=== PATIENT | female | born 1990 | race Caucasian/White ===

== ENCOUNTER 2019-04-27 17:25 | Emergency (ER) | payer SELFPAY ==
[~2019-04-27] VITALS: Ht 154.9 cm; Wt 64.9 kg
[2019-04-27 17:25] VITALS: BP_SYST 122
--- NOTE | 2019-04-27 17:25 | NUR ---
Patient to ER bed hallway to [facility] for evaluation. Side rails up. Report given to OLGA Valdivia.
--- NOTE | 2019-04-27 17:30 | NUR ---
Patient brought in by law enforcement for medical clearance, Hx Ovarian CA, Skin CA, anxiety, depression. Patient A&Ox4, skin pink and warm, cap refill <3, denies pain, denies N/V/D.
--- NOTE | 2019-04-27 17:30 | NUR ---
PAtient brought in by law enforcement for medical clearance, Hx Ovarian CA, Skin CA, anxiety, depression. Patient A&Ox4, skin pinak and warm, cap refill <3, denies pain, denies N/V/D.
--- NOTE | 2019-04-27 17:45 | NUR ---
ER Dr. Lopez at bedside examining patient.
[2019-04-27 17:57] VITALS: BP_SYST 119
--- NOTE | 2019-04-27 17:57 | NUR ---
Patient given written and verbal discharge instructions and verbalizes understanding. ER MD discussed with patient the results and treatment provided. Patient in stable condition. ID arm band removed. no Rx given. Patient educated on pain management and to follow up with PMD. Pain Scale 0/10. Opportunity for questions provided and answered.Law enforcement given discharge packet
== END 2019-04-27 17:57 ==
LOC: SED 17:25
DX: Z02.89 Encounter for other administrative examinations (principal)
CPT/HCPCS: 99283